=== PATIENT | female | born 1935 | race Caucasian/White ===

== ENCOUNTER → 2019-08-18 | Outpatient (CLI) | payer MEDICARE, OTHER ==
[~2019-08-18] MED LIST: ASPIRIN 81M81 MG/TA2 PO; ATIVAN 0.50.5 MG/TAB PO; CRESTOR 10MG10 MG PO; DRY EYES 15 ML15 ML OP; FOSAMAX70 MG PO; LOTEMAX 5 ML 5 M5 ML OP; OMEGA 31000 MG PO; PRILOSEC10 MG PO; RESTASIS 60VL OU; TENORMIN 2525 MG/TAB PO; VITAMIN D1000 IU PO
== END ==
LOC: MC.RAD 13:08
DX: Z12.31 Encounter for screening mammogram for malignant neoplasm of breast (principal)